=== PATIENT | female | born 1975 | race Caucasian/White ===

== ENCOUNTER 2016-04-11 21:24 | Emergency (ER) | payer MEDICAID, OTHER ==
[2016-04-11] MEDS ORDERED: LIDOCAINE 2% 20 ML ONE (21:47)
== END 2016-04-11 23:05 | disposition home or self-care (01) ==
LOC: EEVIPCON 21:24 → ER 21:24
DX: S91.209A Unspecified open wound of unspecified toe(s) with damage to nail, initial encounter (principal); Z79.899 Other long term (current) drug therapy